=== PATIENT | male | born 1945 | race Caucasian/White ===

== ENCOUNTER 2020-11-11 14:25 | Day surgery (SDC) | payer MEDICARE ==
[2020-11-04 11:24] VITALS: BP 160/75
[~2020-11-11] VITALS: Ht 193 cm; Wt 94.8 kg
[~2020-11-11 14:25] MED LIST: ACET-458 PO; AMLO-211 PO; ATOR10TA9 PO; GABA300C PO; LOSA1TAB22 PO; MULT-449 PO; TAMS-11 PO; TYLENOL PM PO
[2020-11-11] MEDS ORDERED: CHLORHEXIDINE 15 ML UDC PO ONE ×2 (15:00→15:30)
[2020-11-11] MEDS ORDERED: LACTATED RINGERS 1,000 ML IV SCH ×2 (15:00→15:30)
[2020-11-11] MEDS ORDERED: CHLORHEXIDINE 15 ML UDC ONE (15:04)
[2020-11-11 15:18] VITALS: BP 160/91
[2020-11-11] MEDS ORDERED: GEMCITABINE HCL 1,000 MG in SODIUM CHLORIDE 0.9% 23.7 ML IS ONE (15:30)
[2020-11-11] MEDS ORDERED: FENTANYL PF 100 MCG/2ML ONE ×3 (15:42→17:00)
[2020-11-11 15:50] LABS: BASOPHILS % (AUTO) 1 % (0-1); EOSINOPHILS % (AUTO) 1 % (1-7); LYMPHOCYTES % (AUTO) 36 % (22-44); MEAN CORPUSCULAR HEMOGLOBIN 32.4 pg (27.5-34.5); MEAN CORPUSCULAR HGB CONC 34.4 g/dL (33.2-36.2); MEAN PLATELET VOLUME 6.3 fL (7.4-10.4); MICROSCOPIC NOT IND; MONOCYTES % (AUTO) 8 % (2-9); NEUTROPHILS % (AUTO) 55 % (42-75); PLATELET COUNT 335 x10^3/uL (130-400); RED BLOOD COUNT 4.52 x10^6/uL (4.38-5.82); RED CELL DISTRIBUTION WIDTH 13.9 % (9.4-14.8)
[2020-11-11 15:53] LABS: ALANINE AMINOTRANSFERASE 32 U/L (12-78); ALBUMIN 3.7 g/dL (3.4-5.0); ANION GAP 6 mmol/L (5-15); CHLORIDE 103 mmol/L (98-107)
[2020-11-11 15:55] LABS: ALKALINE PHOSPHATASE 68 U/L (45-117); BILIRUBIN,TOTAL 0.5 mg/dL (0.2-1.0); TOTAL PROTEIN 7.3 g/dL (6.4-8.2)
[2020-11-11] MEDS ORDERED: ACETAMINOPHEN 325 MG TABLET PO PRN (16:00)
[2020-11-11] MEDS ORDERED: ONDANSETRON 2MG/ML, 2ML IVPush PRN (16:00)
[2020-11-11] MEDS ORDERED: EPHEDRINE 50 MG/ML, 1ML IVPush PRN (16:00)
[2020-11-11] MEDS ORDERED: PROMETHAZINE 25 MG/ML, 1ML IVPush PRN (16:00)
[2020-11-11] MEDS ORDERED: OXYcodone 5 MG/5 ML ORAL.SOL UDC PO PRN (16:00)
[2020-11-11] MEDS ORDERED: LABETALOL 5MG/ML, 20ML IV PRN (16:00)
[2020-11-11] MEDS ORDERED: CEFAZOLIN 1,000 MG ONE ×2 (16:06→16:14)
[2020-11-11] MEDS ORDERED: LIDOCAINE-MPF 2% ,5ML ONE (16:13)
[2020-11-11] MEDS ORDERED: SUGAMMADEX 200 MG/2 ML IVPush ONE (16:13)
[2020-11-11] MEDS ORDERED: SUCCINYLCHOLINE 20 MG/ML, 10ML ONE (16:14)
[2020-11-11] MEDS ORDERED: ONDANSETRON 2MG/ML, 2ML ONE (16:14)
[2020-11-11] MEDS ORDERED: ROCURONIUM 10MG/ML,5ML ONE (16:14)
[2020-11-11] MEDS ORDERED: PROPOFOL 10 MG/ML, 20ML ONE (16:14)
[2020-11-11] MEDS ORDERED: DEXAMETHASONE 4 MG/ML, 1ML ONE (16:14)
[2020-11-11 16:17] LABS: INTERNATIONAL NORMALIZED RATIO 0.96 (0.93-1.1); PROTHROMBIN TIME 10.3 Seconds (9.6-11.5)
[2020-11-11] MEDS: FENTANYL PF 100 MCG/2ML IV PRN ×2 (16:43→16:50)
[2020-11-11] MEDS ORDERED: hydrALAzine 20 MG/ML, 1ML ONE (16:56)
[2020-11-11] MEDS: hydrALAzine 20 MG/ML, 1ML IV PRN ×2 (16:59→17:50)
[2020-11-11] MEDS ORDERED: HYDROmorphone 2 MG/ML, 1ML ONE (17:00)
[2020-11-11] MEDS: HYDROmorphone 1 MG/ML, 1ML INJ IVPush PRN ×2 (17:03→17:20)
== END 2020-11-11 19:05 | disposition home or self-care (01) ==
LOC: OR 14:25
PROVIDERS: ATTEND Urology
DX: N32.89 Other specified disorders of bladder (principal); C67.5 Malignant neoplasm of bladder neck; N28.1 Cyst of kidney, acquired; I10 Essential (primary) hypertension; E78.5 Hyperlipidemia, unspecified; F12.90 Cannabis use, unspecified, uncomplicated; Z88.1 Allergy status to other antibiotic agents; Z88.2 Allergy status to sulfonamides; Z88.8 Allergy status to other drugs, medicaments and biological substances; Z79.2 Long term (current) use of antibiotics; Z79.899 Other long term (current) drug therapy; Z87.891 Personal history of nicotine dependence; Z72.89 Other problems related to lifestyle; Z98.890 Other specified postprocedural states
CPT/HCPCS: 36415; 51720; 52234; 80053; 81003; 85025; 85610; 88305; 93005; J0330; J0360; J0690; J1100; J1170; J2405; J2704; J3010; J7120; J9201